=== PATIENT | male | born 1970 | race Caucasian/White ===

== ENCOUNTER 2018-04-25 10:13 | Inpatient (IN) | payer OTHER ==
[2018-04-25 10:28] VITALS: BMI 36.5
--- NOTE | 2018-04-25 13:26 | HP ---
CIWA Score Nausea/Vomitin Muscle Tremors: 2 Anxiety: 2 Agitation: 2 Paroxysmal Sweats: 1-Minimal Palms Moist Orientation: 0-Oriented Tacttile Disturbances: 1-Very Mild Itch/Numbness Auditory Disturbances: 1-Very Mild Visual Disturbances: 0-None Headache: 2-Mild CIWA-Ar Total Score: 13 - Admission Criteria OASAS Guidelines: Admission for Medically Managed Detox: Requires at least one of the followin. CIWA greater than 12 2. Seizures within the past 24 hours 3. Delirium tremens within the past 24 hours 4. Hallucinations within the past 24 hours 5. Acute intervention needed for co occurring medical disorder 6. Acute intervention needed for co occurring psychiatric disorder 7. Severe withdrawal that cannot be handled at a lower level of care (continued vomiting, continued diarrhea, abnormal vital signs) requiring intravenous medication and/or fluids 8. Patient presents the following: CIWA greater than 12 Admission Criteria Met: Admission criteria met Admission ROS BHS - HPI Chief Complaint: i need help to stop drinking alcohol and xanax on suboxone maintenance Allergies/Adverse Reactions: Allergies Allergy/AdvReac Type Severity Reaction Status Date / Time No Known Allergies Allergy Verified 04/25/18 12:03 History of Present Illness: this 47 years old male with alcohol and xanax dependence,seeking detox, withdrawal symptom,last detox 10/02/17 to 10/05/17 nicotine dependence multiple admissions longest sobriety 3 years on suboxone maintenance 8mg/2mg sl film tid Exam Limitations: No Limitations - Ebola screening Have you traveled outside of the country in the last 21 days: No Have you had contact with anyone from an Ebola affected area: No Have you been sick,other than usual withdrawal symptoms: No - Review of Systems Constitutional: Loss of Appetite, Malaise, Night Sweats, Changes in sleep, Weakness EENT: reports: Nose Congestion Respiratory: reports: No Symptoms reported Cardiac: reports: No Symptoms Reported GI: reports: Nausea, Vomiting, Abdominal cramping : reports: No Symptoms Reported Musculoskeletal: reports: Back Pain, Muscle Pain Integumentary: reports: Dryness Neuro: reports: Headache, Tremors Endocrine: reports: No Symptoms Reported Hematology: reports: No Symptoms Reported Psychiatric: reports: No Sypmtoms Reported, Judgement Intact, Mood/Affect Appropiate, Orientated x3 Patient History - Patient Medical History Hx Anemia: No Hx Asthma: No Hx Chronic Obstructive Pulmonary Disease (COPD): No Hx Cancer: No Hx Cardiac Disorders: No Hx Congestive Heart Failure: No Hx Hypertension: Yes (nomed) Hx Hypercholesterolemia: No Hx Pacemaker: No HX Cerebrovascular Accident: No Hx Seizures: No Hx Dementia: No Hx Diabetes: No Hx Gastrointestinal Disorders: No Hx Liver Disease: No Hx Genitourinary Disorders: No Hx Sexually Transmitted Disorders: No Hx Renal Disease (ESRD): No Hx Thyroid Disease: No Hx Human Immunodeficiency Virus (HIV): No (last 12/03 negative) Hx Hepatitis C: No Hx Depression: Yes (no med) Hx Suicide Attempt: No Hx Bipolar Disorder: No Hx Schizophrenia: No Other Medical History: no suicidal,no homicidal - Patient Surgical History Past Surgical History: No Hx Neurologic Surgery: No Hx Cataract Extraction: No Hx Cardiac Surgery: No Hx Lung Surgery: No Hx Breast Surgery: No Hx Breast Biopsy: No Hx Abdominal Surgery: No Hx Appendectomy: No Hx Cholecystectomy: No Hx Genitourinary Surgery: No Hx Section: No Hx Orthopedic Surgery: No Anesthesia Reaction: No - PPD History Previous Implant?: Yes Documented Results: Negative w/proof Implanted On Prior [facility] Admission?: Yes Date: 10/04/17 Results: 0 mm PPD to be Administered?: No - Smoking Cessation Smoking history: Current every day smoker Have you smoked in the past 12 months: Yes Aproximately how many cigarettes per day: 6 Hx Chewing Tobacco Use: No Initiated information on smoking cessation: Yes 'Breaking Loose' booklet given: 04/25/18 - Substance & Tx. History Hx Alcohol Use: Yes Hx Substance Use: Yes Substance Use Type: Alcohol, Tranquilizers Hx Substance Use Treatment: Yes ([facility] 10/02/18 to 10/05/17) - Substances Abused Alcohol-vodka Route: Oral Frequency: Daily Amount used: 1 pt. Age of first use: 15 Date of Last Use: 04/25/18 Klonopin Route: Oral Frequency: Daily Amount used: 4-6 mg. Age of first use: 37 Date of Last Use: 04/24/18 Family Disease History - Family Disease History Family Disease History: Diabetes: Father, Mother Admission Physical Exam BHS - Vital Signs Vital Signs: Vital Signs - 24 hr 04/25/18 10:22 Temperature 98.5 F Pulse Rate 98 H Respiratory 20 Rate Blood Pressure 137/79 - Physical General Appearance: Yes: Moderate Distress, Tremorous, Irritable, Sweating, Anxious HEENTM: Yes: Normal ENT Inspection, MELISSA, Pharynx Normal Respiratory: Yes: Lungs Clear, Normal Breath Sounds, No Respiratory Distress Neck: Yes: Within Normal Limits, Supple, Trachea in good position Breast: Yes: Within Normal Limits Cardiology: Yes: Within Normal Limits, Regular Rhythm, Regular Rate, S1, S2 Abdominal: Yes: Within Normal Limits, Normal Bowel Sounds, Non Tender, Soft Genitourinary: Yes: Within Normal Limits Back: Yes: Muscle Spasm Musculoskeletal: Yes: Back pain, Muscle Pain Extremities: Yes: Tremors Integumentary: Yes: Dry Lymphatic: Yes: Within Normal Limits - Diagnostic (1) Alcohol dependence with uncomplicated withdrawal Current Visit: No Status: Acute (2) Dehydration Current Visit: No Status: Acute (3) Nicotine dependence Current Visit: No Status: Acute Qualifiers: Nicotine product type: cigarettes Substance use status: uncomplicated Qualified Code(s): F17.210 - Nicotine dependence, cigarettes, uncomplicated (4) Sedative, hypnotic or anxiolytic dependence with withdrawal, uncomplicated Current Visit: No Status: Acute (5) Encounter for monitoring Suboxone maintenance therapy Current Visit: Yes Status: Acute Cleared for Admission [facility] - Detox or Rehab [facility] Level of Care: Medically Managed Detox Regimen/Protocol: Valium [facility] Breath Alcohol Content Breath Alcohol Content: 0.14 Urine Drug Screen - Results Drug Screen Negative: No Urine Drug Screen Results: THC-Marijuana, BUP-Suboxone
[2018-04-25] MEDS ORDERED: MAGNESIUM HYDROX 2400MG/30ML ORAL SUSPENSION 30 ML CUP PO PRN (13:37)
[2018-04-25] MEDS ORDERED: P-EPHED 60MG/TRIPROLIDI 2.5MG TABLET PO PRN (13:37)
[2018-04-25] MEDS ORDERED: MAGNESIUM CITRATE 300 ML BOTTLE PO PRN (13:37)
[2018-04-25] MEDS ORDERED: MENTHOL/PHENOL 1 EACH UD MM PRN (13:37)
[2018-04-25] MEDS ORDERED: IBUPROFEN 400 MG TABLET (FP) PO PRN (13:37)
[2018-04-25] MEDS ORDERED: ACETAMINOPHEN 325 MG TABLET (FP) PO PRN (13:37)
[2018-04-25] MEDS ORDERED: LOPERAMIDE HCL 2 MG CAPSULE PO PRN (13:37)
[2018-04-25] MEDS ORDERED: guaiFENesin/D-METHORPHAN HB 10 ML UNIT-DOSE CUPS PO PRN (13:37)
[2018-04-25] MEDS ORDERED: diazePAM 5 MG TABLET PO ONE (14:40)
[2018-04-25] MEDS: BUPRENORPHINE/NALOXONE 8 MG/2 MG FILM PACKET SL SCH ×2 (15:15→22:16)
[2018-04-25] MEDS: diazePAM 5 MG TABLET PO SCH ×2 (15:19→22:16)
[2018-04-25] MEDS: diazePAM 5 MG TABLET PO PRN (17:20)
[2018-04-25 18:32] LABS: URINE APPEARANCE SLCLOUDY; URINE BILIRUBIN NEGATIVE (<2.0 mg/dL); URINE COLOR YELLOW; URINE GLUCOSE (UA) NEGATIVE (NEGATIVE); URINE KETONE NEGATIVE (NEGATIVE); URINE LEUK ESTERASE NEGATIVE (NEGATIVE); URINE NITRITE NEGATIVE (NEGATIVE); URINE PROTEIN NEGATIVE (NEGATIVE); URINE UROBILINOGEN NEGATIVE mg/dL (0.2-1.0)
[2018-04-25] MEDS: NICOTINE POLACRILEX 2 MG GUM BUC PRN ×2 (19:15→22:17)
[2018-04-25] MEDS: THIAMINE HCL 100 MG TABLET (FP) PO SCH (22:16)
[2018-04-26] MEDS: diazePAM 5 MG TABLET PO PRN ×4 (04:22→20:25)
[2018-04-26] MEDS: NICOTINE POLACRILEX 2 MG GUM BUC PRN ×2 (06:07→22:49)
[2018-04-26] MEDS: diazePAM 5 MG TABLET PO SCH ×3 (06:07→22:08)
[2018-04-26] MEDS: BUPRENORPHINE/NALOXONE 8 MG/2 MG FILM PACKET SL SCH ×3 (06:07→22:08)
[2018-04-26 10:15] LABS: HEMATOCRIT 39.8 % (35.4-49); HEMOGLOBIN 13.3 GM/dL (11.7-16.9); MCH 28.4 pg (25.7-33.7); MCHC 33.3 g/dl (32.0-35.9); MEAN CELL VOLUME 85.5 fl (80-96); MEAN PLT VOLUME 10.5 fl (7.5-11.1); PLATELET COUNT 151 K/MM3 (134-434); RBC 4.66 M/mm3 (4.00-5.60); RDW 13.4 % (11.9-15.9); WHITE BLOOD COUNT 8.5 K/mm3 (4.0-10.0)
[2018-04-26] MEDS: PRENATAL VITAMINS W/ FOLIC ACID TABLET (FP) PO SCH (10:32)
[2018-04-26 10:46] LABS: ALBUMIN 3.5 g/dl (3.4-5.0); ALK PHOS 147 U/L (45-117); ANION GAP 9 MMOL/L (8-16); BILIRUBIN,TOTAL 0.4 mg/dL (0.2-1); BLOOD UREA NITROGEN 21 mg/dL (7-18); CALCIUM 8.6 mg/dL (8.5-10.1); CHLORIDE 103 mmol/L (98-107); CO2 27 mmol/L (21-32); GLUCOSE,RANDOM 97 mg/dL (74-106); POTASSIUM 4.1 mmol/L (3.5-5.1); SGOT/AST 58 U/L (15-37); SGPT/ALT 110 U/L (13-61); SODIUM 139 mmol/L (136-145); TOT PROT 7.4 g/dl (6.4-8.2)
[2018-04-26] MEDS: NICOTINE 14 MG/24 HOURS TOPICAL PATCH TD SCH (12:17)
--- NOTE | 2018-04-26 14:52 | EKG ---
Test Reason : Blood Pressure : / mmHG Vent. Rate : 090 BPM Atrial Rate : 090 BPM P-R Int : 154 ms QRS Dur : 086 ms QT Int : 372 ms P-R-T Axes : 054 048 017 degrees QTc Int : 455 ms NORMAL SINUS RHYTHM POSSIBLE LEFT ATRIAL ENLARGEMENT WHEN COMPARED WITH ECG OF 02-OCT-2017 14:57, NO SIGNIFICANT CHANGE WAS FOUND Confirmed by NNAMDI SARABIA MD ([id number]) on 04/26/2018 2:52:23 PM Referred By: Confirmed By:NNAMDI SARABIA MD
--- NOTE | 2018-04-26 17:35 | PN ---
S CIWA - CIWA Score Nausea/Vomitin Muscle Tremors: 4-Moderate,w/Arms Extend Anxiety: 3 Agitation: 4-Moderately Restless Paroxysmal Sweats: 3 Orientation: 0-Oriented Tacttile Disturbances: 0-None Auditory Disturbances: 0-None Visual Disturbances: 0-None Headache: 0-None Present CIWA-Ar Total Score: 16 BHS Progress Note (SOAP) Subjective: Interrupted sleep, anxious, sweating Objective: 04/26/18 17:34 Last Vital Signs Temp Pulse Resp BP Pulse Ox 97.0 F L 86 18 110/68 04/26/18 15:51 04/26/18 15:51 04/26/18 15:51 04/26/18 15:51 Laboratory Tests 04/25/18 04/26/18 04/26/18 15:48 06:00 06:00 WBC 8.5 RBC 4.66 Hgb 13.3 Hct 39.8 MCV 85.5 MCH 28.4 MCHC 33.3 RDW 13.4 Plt Count 151 MPV 10.5 Sodium 139 Potassium 4.1 Chloride 103 Carbon Dioxide 27 Anion Gap 9 BUN 21 H Creatinine 1.0 Creat Clearance w eGFR > 60 Random Glucose 97 Calcium 8.6 Total Bilirubin 0.4 AST 58 H ALT 110 H Alkaline Phosphatase 147 H Total Protein 7.4 Albumin 3.5 Urine Color Yellow Urine Appearance Slcloudy Urine pH 5.0 Ur Specific [place] 1.028 Urine Protein Negative Urine Glucose (UA) Negative Urine Ketones Negative Urine Blood Negative Urine Nitrite Negative Urine Bilirubin Negative Urine Urobilinogen Negative Ur Leukocyte Esterase Negative RPR Titer 04/26/18 06:00 WBC RBC Hgb Hct MCV MCH MCHC RDW Plt Count MPV Sodium Potassium Chloride Carbon Dioxide Anion Gap BUN Creatinine Creat Clearance w eGFR Random Glucose Calcium Total Bilirubin AST ALT Alkaline Phosphatase Total Protein Albumin Urine Color Urine Appearance Urine pH Ur Specific [place] Urine Protein Urine Glucose (UA) Urine Ketones Urine Blood Urine Nitrite Urine Bilirubin Urine Urobilinogen Ur Leukocyte Esterase RPR Titer Nonreactive Labs reviewed: bun 21 Assessment: 04/26/18 17:35 Withdrawal sxs Noted with azotemia Plan: Continue detox Azotemia: encouraged PO water intake
[2018-04-26] MEDS: THIAMINE HCL 100 MG TABLET (FP) PO SCH (22:08)
[2018-04-26] MEDS: MELATONIN 5 MG TABLETS PO PRN (22:09)
[2018-04-27] MEDS: diazePAM 5 MG TABLET PO PRN ×3 (01:54→14:09)
[2018-04-27] MEDS: BUPRENORPHINE/NALOXONE 8 MG/2 MG FILM PACKET SL SCH ×3 (05:55→22:06)
[2018-04-27] MEDS: NICOTINE POLACRILEX 2 MG GUM BUC PRN ×3 (05:56→22:07)
[2018-04-27] MEDS: diazePAM 5 MG TABLET PO SCH ×2 (10:26→22:07)
[2018-04-27] MEDS: PRENATAL VITAMINS W/ FOLIC ACID TABLET (FP) PO SCH (10:26)
[2018-04-27] MEDS: NICOTINE 14 MG/24 HOURS TOPICAL PATCH TD SCH (10:26)
--- NOTE | 2018-04-27 12:52 | PN ---
S CIWA - CIWA Score Nausea/Vomitin-No Nausea/No Vomiting Muscle Tremors: 3 Anxiety: 4-Mod. Anxious/Guarded Agitation: 4-Moderately Restless Paroxysmal Sweats: 1-Minimal Palms Moist Orientation: 0-Oriented Tacttile Disturbances: 0-None Auditory Disturbances: 0-None Visual Disturbances: 0-None Headache: 2-Mild CIWA-Ar Total Score: 14 BHS Progress Note (SOAP) Subjective: PT C/O HEADACHE, FATIGUE, RESTLESSNESS, INTERMITTENT SLEEP. Objective: 04/27/18 12:51 Vital Signs 04/27/18 04/27/18 06:22 11:05 Temperature 97 F L 97.3 F L Pulse Rate 79 91 H Respiratory 18 18 Rate Blood Pressure 103/66 126/85 Laboratory Tests 04/25/18 04/26/18 04/26/18 15:48 06:00 06:00 WBC 8.5 RBC 4.66 Hgb 13.3 Hct 39.8 MCV 85.5 MCH 28.4 MCHC 33.3 RDW 13.4 Plt Count 151 MPV 10.5 Sodium 139 Potassium 4.1 Chloride 103 Carbon Dioxide 27 Anion Gap 9 BUN 21 H Creatinine 1.0 Creat Clearance w eGFR > 60 Random Glucose 97 Calcium 8.6 Total Bilirubin 0.4 AST 58 H ALT 110 H Alkaline Phosphatase 147 H Total Protein 7.4 Albumin 3.5 Urine Color Yellow Urine Appearance Slcloudy Urine pH 5.0 Ur Specific [place] 1.028 Urine Protein Negative Urine Glucose (UA) Negative Urine Ketones Negative Urine Blood Negative Urine Nitrite Negative Urine Bilirubin Negative Urine Urobilinogen Negative Ur Leukocyte Esterase Negative RPR Titer 04/26/18 06:00 WBC RBC Hgb Hct MCV MCH MCHC RDW Plt Count MPV Sodium Potassium Chloride Carbon Dioxide Anion Gap BUN Creatinine Creat Clearance w eGFR Random Glucose Calcium Total Bilirubin AST ALT Alkaline Phosphatase Total Protein Albumin Urine Color Urine Appearance Urine pH Ur Specific [place] Urine Protein Urine Glucose (UA) Urine Ketones Urine Blood Urine Nitrite Urine Bilirubin Urine Urobilinogen Ur Leukocyte Esterase RPR Titer Nonreactive Assessment: 04/27/18 12:51 WITHDRAWAL SX Plan: CONTINUE DETOX TYLENOL PRN FOR H/A INCREASE PO FLUIDS ENCOURAGED.
[2018-04-27] MEDS: THIAMINE HCL 100 MG TABLET (FP) PO SCH (22:06)
[2018-04-27] MEDS: MELATONIN 5 MG TABLETS PO PRN (22:08)
[2018-04-28] MEDS: MAG HYDROX/AL HYDROX/SIMETH 30 ML UNIT-DOSE CUP PO PRN (04:12)
[2018-04-28] MEDS: diazePAM 5 MG TABLET PO PRN (04:12)
[2018-04-28] MEDS: BUPRENORPHINE/NALOXONE 8 MG/2 MG FILM PACKET SL SCH ×3 (06:03→22:06)
[2018-04-28] MEDS: NICOTINE POLACRILEX 2 MG GUM BUC PRN ×5 (06:05→22:06)
[2018-04-28] MEDS: NICOTINE 14 MG/24 HOURS TOPICAL PATCH TD SCH (10:37)
[2018-04-28] MEDS: PRENATAL VITAMINS W/ FOLIC ACID TABLET (FP) PO SCH (10:37)
[2018-04-28] MEDS: diazePAM 5 MG TABLET PO SCH ×2 (10:39→22:06)
[2018-04-28 11:02] LABS: SGOT/AST 30 U/L (15-37); SGPT/ALT 63 U/L (13-61)
[2018-04-28 11:44] LABS: INR 0.91 (0.83-1.09); PROTHROMBIN TIME (PATIENT) 10.7 SEC (9.7-13.0)
[2018-04-28] MEDS: hydrOXYzine PAMOATE 25 MG CAPSULE (FP) PO PRN ×2 (14:27→19:04)
--- NOTE | 2018-04-28 17:42 | PN ---
BHS Progress Note (SOAP) Subjective: Feeling tired, diarrhea Objective: 04/28/18 17:40 Last Vital Signs Temp Pulse Resp BP Pulse Ox 97.0 F L 94 H 20 108/78 04/28/18 15:05 04/28/18 15:05 04/28/18 15:05 04/28/18 15:05 Laboratory Tests 04/25/18 04/26/18 04/26/18 15:48 06:00 06:00 WBC 8.5 RBC 4.66 Hgb 13.3 Hct 39.8 MCV 85.5 MCH 28.4 MCHC 33.3 RDW 13.4 Plt Count 151 MPV 10.5 PT with INR INR Sodium 139 Potassium 4.1 Chloride 103 Carbon Dioxide 27 Anion Gap 9 BUN 21 H Creatinine 1.0 Creat Clearance w eGFR > 60 Random Glucose 97 Calcium 8.6 Total Bilirubin 0.4 AST 58 H ALT 110 H Alkaline Phosphatase 147 H Total Protein 7.4 Albumin 3.5 Urine Color Yellow Urine Appearance Slcloudy Urine pH 5.0 Ur Specific [place] 1.028 Urine Protein Negative Urine Glucose (UA) Negative Urine Ketones Negative Urine Blood Negative Urine Nitrite Negative Urine Bilirubin Negative Urine Urobilinogen Negative Ur Leukocyte Esterase Negative RPR Titer 04/26/18 04/28/18 04/28/18 06:00 07:30 07:30 WBC RBC Hgb Hct MCV MCH MCHC RDW Plt Count MPV PT with INR INR Sodium Potassium Chloride Carbon Dioxide Anion Gap BUN Creatinine Creat Clearance w eGFR Random Glucose Calcium Total Bilirubin AST Cancelled 30 ALT 63 H Alkaline Phosphatase Total Protein Albumin Urine Color Urine Appearance Urine pH Ur Specific [place] Urine Protein Urine Glucose (UA) Urine Ketones Urine Blood Urine Nitrite Urine Bilirubin Urine Urobilinogen Ur Leukocyte Esterase RPR Titer Nonreactive 04/28/18 04/28/18 07:30 07:30 WBC RBC Hgb Hct MCV MCH MCHC RDW Plt Count MPV PT with INR 10.70 INR 0.91 Sodium Potassium Chloride Carbon Dioxide Anion Gap BUN Creatinine Creat Clearance w eGFR Random Glucose Calcium Total Bilirubin AST ALT Alkaline Phosphatase 123 H Total Protein Albumin Urine Color Urine Appearance Urine pH Ur Specific [place] Urine Protein Urine Glucose (UA) Urine Ketones Urine Blood Urine Nitrite Urine Bilirubin Urine Urobilinogen Ur Leukocyte Esterase RPR Titer Labs reviewed Assessment: 04/28/18 17:40 Withdrawal sxs Plan: Continue detox Encouraged PO water intake
[2018-04-28] MEDS: THIAMINE HCL 100 MG TABLET (FP) PO SCH (22:06)
[2018-04-28] MEDS: MELATONIN 5 MG TABLETS PO PRN (22:06)
[2018-04-29] MEDS: MAG HYDROX/AL HYDROX/SIMETH 30 ML UNIT-DOSE CUP PO PRN (00:38)
[2018-04-29 06:31] VITALS: BP 104/70; PULSE 74; TEMP 96.9
[2018-04-29] MEDS: BUPRENORPHINE/NALOXONE 8 MG/2 MG FILM PACKET SL SCH (08:44)
--- NOTE | 2018-04-29 09:31 | DS ---
[facility] Detox Discharge Summary Admission Date: 04/25/18 Discharge Date: 04/29/18 - History Additional Comments: Pt had left unit prior to provider arriving unit. Per reports received, pt had stated he had to leave early because he had a long trip and had to catch the trains. Unable to verify if pt neeeds a Suboxone refill. Pertinent Past History: MMTP - Physical Exam Results Vital Signs: Vital Signs Temperature 96.9 F L 04/29/18 06:31 Pulse Rate 74 04/29/18 06:31 Respiratory Rate 18 04/29/18 06:31 Blood Pressure 104/70 04/29/18 06:31 O2 Sat by Pulse Oximetry (%) Pertinent Admission Physical Exam Findings: withdrawal sx - Treatment Hospital Course: Detox Protocol Followed, Detoxed Safely, Responded well, Discharged Condition Good - Medication Discharge Medications: Ambulatory Orders Buprenorphine/Naloxone [Suboxone 8Mg/2Mg Sl Film -] 2 each SL DAILY 04/25/18 - Diagnosis (1) Alcohol dependence with uncomplicated withdrawal Current Visit: Yes Status: Acute (2) Azotemia Current Visit: Yes Status: Acute (3) Elevated alkaline phosphatase level Current Visit: Yes Status: Acute (4) Elevated liver enzymes Current Visit: Yes Status: Acute (5) Nicotine dependence Current Visit: Yes Status: Acute Qualifiers: Nicotine product type: cigarettes Substance use status: in withdrawal Qualified Code(s): F17.213 - Nicotine dependence, cigarettes, with withdrawal (6) Sedative, hypnotic or anxiolytic dependence with withdrawal, uncomplicated Current Visit: Yes Status: Acute (7) Encounter for monitoring Suboxone maintenance therapy Current Visit: Yes Status: Chronic (8) Anxiety Current Visit: No Status: Acute (9) Cannabis abuse Current Visit: No Status: Acute (10) Cocaine dependence Current Visit: No Status: Acute (11) Dehydration Current Visit: No Status: Acute (12) Substance induced mood disorder Current Visit: No Status: Acute - AMA Did Patient Leave Against Medical Advice: No
[2018-04-29] MEDS ORDERED: diazePAM 5 MG TABLET PO SCH (10:00)
== END 2018-04-29 09:25 | disposition home or self-care (01) | DRG 774 ==
LOC: YASAS 10:13 → Y3N 14:02
PROC: HZ2ZZZZ Detoxification Services for Substance Abuse Treatment (ICD-10-PCS; principal; 2018-04-25)
DX: F10.230 Alcohol dependence with withdrawal, uncomplicated (principal); F13.230 Sedative, hypnotic or anxiolytic dependence with withdrawal, uncomplicated; F14.20 Cocaine dependence, uncomplicated; F12.10 Cannabis abuse, uncomplicated; F17.213 Nicotine dependence, cigarettes, with withdrawal; F41.9 Anxiety disorder, unspecified; F32.9 Major depressive disorder, single episode, unspecified; F19.24 Other psychoactive substance dependence with psychoactive substance-induced mood disorder; E86.0 Dehydration; R79.89 Other specified abnormal findings of blood chemistry; R74.8 Abnormal levels of other serum enzymes; R94.5 Abnormal results of liver function studies; Z51.81 Encounter for therapeutic drug level monitoring; Z59.0 Homelessness
CPT/HCPCS: 36415; 80053; 81003; 84075; 84450; 84460; 85027; 85610; 86593; 93005; 93010

== ENCOUNTER 2018-04-30 13:11 | Inpatient (IN) | payer OTHER ==
[2018-04-30 14:17] VITALS: BMI 36.9
--- NOTE | 2018-04-30 16:00 | HP ---
[facility] Rehab Assess/Revision - Admission History Admitted to Rehab from: [facility] Date of Admission to Rehab: 04/30/18 - Vital signs Vital Signs: Vital Signs Period Temp Pulse Resp BP Sys/Arnold Pulse Ox Last 24 Hr 100.0 F 113 20 141/93 - Findings Detox History & Physical reviewed: Yes Concur with findings: Yes Comments/Additional Findings: 47 years old male with alcohol and konopin dependence,suboxone maintenance,complete detox 04/25/18 to 04/29/18. for rehab as protocol Inpatient Rehab Admission - Initial Determination Are CD services needed?: Yes Free of communicable disease: Yes Not in need of hospitalization: Yes - Rehab Admission Criteria Previous failed treatment: Yes Poor recovery environment: Yes Comorbidities: Yes Lacks judgement: No Patient is meeting Inpatient Rehab admission criteria:: Yes
[2018-04-30] MEDS ORDERED: IBUPROFEN 400 MG TABLET (FP) PO PRN (16:02)
[2018-04-30] MEDS ORDERED: MAGNESIUM CITRATE 300 ML BOTTLE PO PRN (16:02)
[2018-04-30] MEDS ORDERED: LOPERAMIDE HCL 2 MG CAPSULE PO PRN (16:02)
[2018-04-30] MEDS ORDERED: P-EPHED 60MG/TRIPROLIDI 2.5MG TABLET PO PRN (16:02)
[2018-04-30] MEDS ORDERED: ACETAMINOPHEN 325 MG TABLET (FP) PO PRN (16:02)
[2018-04-30] MEDS ORDERED: MENTHOL/PHENOL 1 EACH UD MM PRN (16:02)
[2018-04-30] MEDS ORDERED: guaiFENesin/D-METHORPHAN HB 10 ML UNIT-DOSE CUPS PO PRN (16:02)
[2018-04-30] MEDS ORDERED: MAGNESIUM HYDROX 2400MG/30ML ORAL SUSPENSION 30 ML CUP PO PRN (16:02)
[2018-04-30] MEDS: NICOTINE POLACRILEX 2 MG GUM BUC PRN ×2 (19:26→22:46)
[2018-04-30] MEDS: GABAPENTIN 300 MG CAPSULE (FP) PO SCH (21:48)
[2018-04-30] MEDS: THIAMINE HCL 100 MG TABLET (FP) PO SCH (21:48)
[2018-04-30] MEDS: hydrOXYzine PAMOATE 50 MG CAPSULE (FP) PO PRN (22:45)
[2018-05-01] MEDS: GABAPENTIN 300 MG CAPSULE (FP) PO SCH ×2 (10:03→21:29)
[2018-05-01] MEDS: PRENATAL VITAMINS W/ FOLIC ACID TABLET (FP) PO SCH (10:04)
[2018-05-01] MEDS: BUPRENORPHINE/NALOXONE 8 MG/2 MG FILM PACKET SL SCH (10:04)
[2018-05-01] MEDS: NICOTINE POLACRILEX 2 MG GUM BUC PRN ×4 (10:09→21:30)
--- NOTE | 2018-05-01 10:31 | HP ---
Psychiatrist Admission - Data Date of interview: 05/01/18 Admission source: 3N Identifying data: This is the first [facility] admission for this 47 years old single male, father of a 20 years old daughter, unemployed deprived on any source of income, homeless Medical History: Significant for dyslipidemia. Patient is on Suboxone one each daily. Smokes 6 cigarettes daily Psychiatric History: Patient reports that he was diagnosed diagnosed with MDD approximately 20 years ago while in detention. He told marine underwriter that at the time, he was depressed with lack of sleep, motivation and interest in doing anything. He said that he was tried on several medications including Prozac and Paxil and finally Wellbutrin that he is still taking to this day. Reports history of 2 previous admissions to [facility] for 10 days in 2001 and [facility] x 15 days in 2006. Both admissions occured in the setting of intoxication with Phencyclidine and Benzodiazepine. He currently sees an DANCING TEACHER at [facility] and he is prescribed wellburtin Xl 150 mg po daily and Remeron 15 mg po Hs in addition to Suboxone and Gabapentin.Patient denies history of suicide attempts. At present, reports feeling anxious and sleeping poorly. Physical/Sexual Abuse/Trauma History: Denies Additional Comment: Reports history of multiple arrests including 3 felony convictions. denies being on parole/probation at present Vital Signs: Vital Signs - 24 hr 04/30/18 04/30/18 05/01/18 14:12 18:50 00:30 Temperature 100.0 F H 98.9 F Pulse Rate 113 H 100 H Respiratory 20 18 20 Rate Blood Pressure 141/93 120/65 05/01/18 05/01/18 03:30 06:49 Temperature 97.8 F Pulse Rate 79 Respiratory 18 18 Rate Blood Pressure 117/78 Allergies/Adverse Reactions: Allergies Allergy/AdvReac Type Severity Reaction Status Date / Time No Known Allergies Allergy Verified 04/30/18 14:26 Date of last physical exam: 04/25/18 Concur with the findings of this exam: Yes - Substance Abuse/Tx History Hx Alcohol Use: Yes Hx Substance Use: Yes (Currently attending [facility]) Substance Use Type: Alcohol (Started drinking alcohol at age 15, consumes one pint of vodka daily. Last drank on 04/25/18), Tranquilizers (Started using klonopin at age 37, consumes 4-6 mg/day. Last used on 04/24/18) Hx Substance Use Treatment: Yes (Multiple inpt deox & inpt rehab admissions) Mental Status Exam - Mental Status Exam Alert and Oriented to: Time, Place Cognitive Function: Fair Patient Appearance: Well Groomed Mood: Anxious Affect: Appropriate Patient Behavior: Cooperative Speech Pattern: Clear Voice Loudness: Normal Thought Process: Intact Thought Disorder: Not Present Hallucinations: Denies Suicidal Ideation: Denies Homicidal Ideation: Denies Insight/Judgement: Fair Sleep: Poorly Appetite: Good Muscle strength/Tone: Normal Gait/Station: Normal Psychiatric Findings - Problem List ([place] 1, 2,3) (1) Alcohol dependence Current Visit: Yes Status: Acute (2) Sedative hypnotic or anxiolytic dependence Current Visit: Yes Status: Acute (3) Opioid dependence on agonist therapy Current Visit: No Status: Chronic (4) Nicotine dependence Current Visit: No Status: Chronic Qualifiers: (5) MDD (major depressive disorder), recurrent episode, moderate Current Visit: Yes Status: Chronic (6) Substance-induced anxiety disorder Current Visit: Yes Status: Acute (7) Substance-induced sleep disorder Current Visit: Yes Status: Acute (8) HLD (hyperlipidemia) Current Visit: Yes Status: Chronic - Initial Treatment Plan Initial Treatment Plan: 1) Continue Wellbutrin XL 150 mg po daily and Remeron 15 mg po HS ordered by Dr Bradley. 2) Monitor progress
[2018-05-01] MEDS: hydrOXYzine PAMOATE 50 MG CAPSULE (FP) PO PRN (17:35)
[2018-05-01] MEDS: MIRTAZAPINE 15 MG TABLET (FP) PO SCH (21:29)
[2018-05-01] MEDS: THIAMINE HCL 100 MG TABLET (FP) PO SCH (21:29)
[2018-05-02] MEDS: hydrOXYzine PAMOATE 50 MG CAPSULE (FP) PO PRN ×2 (06:51→17:22)
[2018-05-02] MEDS: BUPRENORPHINE/NALOXONE 8 MG/2 MG FILM PACKET SL SCH (10:44)
[2018-05-02] MEDS: GABAPENTIN 300 MG CAPSULE (FP) PO SCH ×2 (10:44→21:27)
[2018-05-02] MEDS: PRENATAL VITAMINS W/ FOLIC ACID TABLET (FP) PO SCH (10:44)
[2018-05-02] MEDS: NICOTINE POLACRILEX 2 MG GUM BUC PRN ×4 (10:45→21:30)
[2018-05-02] MEDS: THIAMINE HCL 100 MG TABLET (FP) PO SCH (21:27)
[2018-05-02] MEDS: MIRTAZAPINE 15 MG TABLET (FP) PO SCH (21:27)
[2018-05-02] MEDS: HYDROCORTISONE 1% TOPICAL CREAM 30 GM TUBE TP SCH (21:29)
[2018-05-03] MEDS: BUPRENORPHINE/NALOXONE 8 MG/2 MG FILM PACKET SL SCH ×2 (06:33→10:16)
[2018-05-03] MEDS: NICOTINE POLACRILEX 2 MG GUM BUC PRN ×5 (06:33→20:45)
[2018-05-03] MEDS: GABAPENTIN 300 MG CAPSULE (FP) PO SCH ×2 (10:16→21:28)
[2018-05-03] MEDS: PRENATAL VITAMINS W/ FOLIC ACID TABLET (FP) PO SCH (10:16)
[2018-05-03] MEDS: HYDROCORTISONE 1% TOPICAL CREAM 30 GM TUBE TP SCH ×2 (10:55→21:32)
[2018-05-03] MEDS: hydrOXYzine PAMOATE 50 MG CAPSULE (FP) PO PRN ×2 (12:29→21:28)
[2018-05-03] MEDS: MIRTAZAPINE 15 MG TABLET (FP) PO SCH (21:28)
[2018-05-03] MEDS: THIAMINE HCL 100 MG TABLET (FP) PO SCH (21:28)
[2018-05-04] MEDS: MAG HYDROX/AL HYDROX/SIMETH 30 ML UNIT-DOSE CUP PO PRN (06:02)
[2018-05-04] MEDS: NICOTINE POLACRILEX 2 MG GUM BUC PRN ×5 (06:22→21:25)
[2018-05-04] MEDS: BUPRENORPHINE/NALOXONE 8 MG/2 MG FILM PACKET SL SCH (07:31)
[2018-05-04] MEDS: GABAPENTIN 300 MG CAPSULE (FP) PO SCH ×2 (09:50→21:23)
[2018-05-04] MEDS: PRENATAL VITAMINS W/ FOLIC ACID TABLET (FP) PO SCH (09:50)
[2018-05-04] MEDS: hydrOXYzine PAMOATE 50 MG CAPSULE (FP) PO PRN ×3 (09:51→21:24)
[2018-05-04] MEDS: HYDROCORTISONE 1% TOPICAL CREAM 30 GM TUBE TP SCH ×2 (09:52→21:24)
[2018-05-04] MEDS: MIRTAZAPINE 15 MG TABLET (FP) PO SCH (21:23)
[2018-05-04] MEDS: MELATONIN 5 MG TABLETS PO PRN (21:24)
[2018-05-04] MEDS: THIAMINE HCL 100 MG TABLET (FP) PO SCH (21:24)
[2018-05-05] MEDS: BUPRENORPHINE/NALOXONE 8 MG/2 MG FILM PACKET SL SCH (06:22)
[2018-05-05] MEDS: NICOTINE POLACRILEX 2 MG GUM BUC PRN ×5 (06:23→21:30)
[2018-05-05] MEDS: hydrOXYzine PAMOATE 50 MG CAPSULE (FP) PO PRN ×3 (06:23→21:29)
[2018-05-05] MEDS: PRENATAL VITAMINS W/ FOLIC ACID TABLET (FP) PO SCH (09:25)
[2018-05-05] MEDS: HYDROCORTISONE 1% TOPICAL CREAM 30 GM TUBE TP SCH ×2 (09:25→21:30)
[2018-05-05] MEDS: GABAPENTIN 300 MG CAPSULE (FP) PO SCH ×2 (09:25→21:29)
[2018-05-05] MEDS: MIRTAZAPINE 15 MG TABLET (FP) PO SCH (21:29)
[2018-05-05] MEDS: MELATONIN 5 MG TABLETS PO PRN (21:29)
[2018-05-05] MEDS: THIAMINE HCL 100 MG TABLET (FP) PO SCH (21:30)
[2018-05-06] MEDS: BUPRENORPHINE/NALOXONE 8 MG/2 MG FILM PACKET SL SCH (06:11)
[2018-05-06] MEDS: NICOTINE POLACRILEX 2 MG GUM BUC PRN ×3 (06:12→16:56)
[2018-05-06] MEDS: GABAPENTIN 300 MG CAPSULE (FP) PO SCH ×2 (11:07→21:36)
[2018-05-06] MEDS: HYDROCORTISONE 1% TOPICAL CREAM 30 GM TUBE TP SCH ×2 (11:07→22:43)
[2018-05-06] MEDS: PRENATAL VITAMINS W/ FOLIC ACID TABLET (FP) PO SCH (11:07)
[2018-05-06] MEDS: hydrOXYzine PAMOATE 50 MG CAPSULE (FP) PO PRN ×2 (11:10→21:37)
[2018-05-06] MEDS: MELATONIN 5 MG TABLETS PO PRN (21:36)
[2018-05-06] MEDS: MIRTAZAPINE 15 MG TABLET (FP) PO SCH (21:36)
[2018-05-06] MEDS: THIAMINE HCL 100 MG TABLET (FP) PO SCH (21:37)
[2018-05-07] MEDS: BUPRENORPHINE/NALOXONE 8 MG/2 MG FILM PACKET SL SCH (06:05)
[2018-05-07] MEDS: PRENATAL VITAMINS W/ FOLIC ACID TABLET (FP) PO SCH (10:57)
[2018-05-07] MEDS: HYDROCORTISONE 1% TOPICAL CREAM 30 GM TUBE TP SCH ×2 (10:57→22:38)
[2018-05-07] MEDS: GABAPENTIN 300 MG CAPSULE (FP) PO SCH ×2 (10:57→21:38)
[2018-05-07] MEDS: hydrOXYzine PAMOATE 50 MG CAPSULE (FP) PO PRN ×3 (10:58→21:40)
[2018-05-07] MEDS: NICOTINE POLACRILEX 2 MG GUM BUC PRN ×3 (10:58→17:42)
[2018-05-07] MEDS: NICOTINE 14 MG/24 HOURS TOPICAL PATCH TD SCH (11:35)
[2018-05-07] MEDS: MIRTAZAPINE 15 MG TABLET (FP) PO SCH (21:39)
[2018-05-07] MEDS: THIAMINE HCL 100 MG TABLET (FP) PO SCH (21:39)
[2018-05-07] MEDS: MELATONIN 5 MG TABLETS PO PRN (21:39)
[2018-05-08] MEDS: BUPRENORPHINE/NALOXONE 8 MG/2 MG FILM PACKET SL SCH (06:19)
[2018-05-08] MEDS: NICOTINE POLACRILEX 2 MG GUM BUC PRN ×4 (06:20→16:06)
[2018-05-08] MEDS: GABAPENTIN 300 MG CAPSULE (FP) PO SCH ×2 (10:21→21:31)
[2018-05-08] MEDS: NICOTINE 14 MG/24 HOURS TOPICAL PATCH TD SCH (10:21)
[2018-05-08] MEDS: HYDROCORTISONE 1% TOPICAL CREAM 30 GM TUBE TP SCH ×2 (10:21→21:32)
[2018-05-08] MEDS: hydrOXYzine PAMOATE 50 MG CAPSULE (FP) PO PRN ×2 (10:21→21:31)
[2018-05-08] MEDS: PRENATAL VITAMINS W/ FOLIC ACID TABLET (FP) PO SCH (10:21)
[2018-05-08] MEDS: THIAMINE HCL 100 MG TABLET (FP) PO SCH (21:31)
[2018-05-08] MEDS: MIRTAZAPINE 15 MG TABLET (FP) PO SCH (21:31)
[2018-05-08] MEDS: MELATONIN 5 MG TABLETS PO PRN (21:32)
[2018-05-09] MEDS: BUPRENORPHINE/NALOXONE 8 MG/2 MG FILM PACKET SL SCH (06:37)
[2018-05-09] MEDS: NICOTINE POLACRILEX 2 MG GUM BUC PRN ×5 (06:39→21:41)
[2018-05-09] MEDS: NICOTINE 14 MG/24 HOURS TOPICAL PATCH TD SCH (10:06)
[2018-05-09] MEDS: GABAPENTIN 300 MG CAPSULE (FP) PO SCH ×2 (10:06→21:39)
[2018-05-09] MEDS: HYDROCORTISONE 1% TOPICAL CREAM 30 GM TUBE TP SCH ×2 (10:06→21:41)
[2018-05-09] MEDS: hydrOXYzine PAMOATE 50 MG CAPSULE (FP) PO PRN ×2 (10:07→21:39)
[2018-05-09] MEDS: PRENATAL VITAMINS W/ FOLIC ACID TABLET (FP) PO SCH (10:08)
[2018-05-09] MEDS: MAG HYDROX/AL HYDROX/SIMETH 30 ML UNIT-DOSE CUP PO PRN (17:22)
[2018-05-09] MEDS: MIRTAZAPINE 15 MG TABLET (FP) PO SCH (21:40)
[2018-05-09] MEDS: MELATONIN 5 MG TABLETS PO PRN (21:40)
[2018-05-09] MEDS: THIAMINE HCL 100 MG TABLET (FP) PO SCH (21:40)
[2018-05-10] MEDS: BUPRENORPHINE/NALOXONE 8 MG/2 MG FILM PACKET SL SCH (06:14)
[2018-05-10] MEDS: NICOTINE POLACRILEX 2 MG GUM BUC PRN ×5 (06:14→21:43)
[2018-05-10 07:13] VITALS: TEMP 97.8
[2018-05-10] MEDS: PRENATAL VITAMINS W/ FOLIC ACID TABLET (FP) PO SCH (10:04)
[2018-05-10] MEDS: GABAPENTIN 300 MG CAPSULE (FP) PO SCH ×2 (10:04→21:42)
[2018-05-10] MEDS: NICOTINE 14 MG/24 HOURS TOPICAL PATCH TD SCH (10:05)
[2018-05-10] MEDS: HYDROCORTISONE 1% TOPICAL CREAM 30 GM TUBE TP SCH ×2 (10:05→22:20)
[2018-05-10] MEDS: hydrOXYzine PAMOATE 50 MG CAPSULE (FP) PO PRN ×2 (10:06→21:42)
--- NOTE | 2018-05-10 10:18 | PN ---
S Progress Note (SOAP) Subjective: Patient states having diarrhea since decreaseing Suboxone and notes B/P is elevated. Requesting CloNidine prn to off-set some of the symptoms. States will be continuing Suboxone taper. Objective: Alert and oriented. Pupils 3 mm. Lungs CTA. HR: RR Vital Signs - 24 hr 05/10/18 05/10/18 05/10/18 00:30 03:30 07:12 Temperature 97.8 F Pulse Rate 86 Respiratory 20 18 18 Rate Blood Pressure 147/90 Assessment: Early Remssion Opiate withdrawal symptoms Plan: CloNidine 0.1 mg PO Q8H prn. Encouraged increased water intake.
[2018-05-10] MEDS: cloNIDine HCL 0.1 MG TABLET PO PRN ×2 (11:06→19:07)
[2018-05-10] MEDS: MIRTAZAPINE 15 MG TABLET (FP) PO SCH (21:42)
[2018-05-10] MEDS: THIAMINE HCL 100 MG TABLET (FP) PO SCH (21:42)
[2018-05-10] MEDS: MELATONIN 5 MG TABLETS PO PRN (21:42)
[2018-05-11] MEDS: BUPRENORPHINE/NALOXONE 8 MG/2 MG FILM PACKET SL SCH (06:17)
[2018-05-11] MEDS: NICOTINE POLACRILEX 2 MG GUM BUC PRN ×4 (08:03→21:35)
[2018-05-11] MEDS: PRENATAL VITAMINS W/ FOLIC ACID TABLET (FP) PO SCH (10:24)
[2018-05-11] MEDS: GABAPENTIN 300 MG CAPSULE (FP) PO SCH ×2 (10:24→21:34)
[2018-05-11] MEDS: cloNIDine HCL 0.1 MG TABLET PO PRN ×2 (10:25→18:35)
[2018-05-11] MEDS: hydrOXYzine PAMOATE 50 MG CAPSULE (FP) PO PRN ×2 (10:25→18:34)
[2018-05-11] MEDS: HYDROCORTISONE 1% TOPICAL CREAM 30 GM TUBE TP SCH ×2 (10:25→22:13)
[2018-05-11] MEDS: NICOTINE 14 MG/24 HOURS TOPICAL PATCH TD SCH (10:25)
[2018-05-11] MEDS: MELATONIN 5 MG TABLETS PO PRN (21:34)
[2018-05-11] MEDS: MIRTAZAPINE 15 MG TABLET (FP) PO SCH (21:34)
[2018-05-11] MEDS: THIAMINE HCL 100 MG TABLET (FP) PO SCH (21:34)
[2018-05-12] MEDS: BUPRENORPHINE/NALOXONE 8 MG/2 MG FILM PACKET SL SCH (06:10)
[2018-05-12] MEDS: NICOTINE POLACRILEX 2 MG GUM BUC PRN ×5 (06:11→21:32)
[2018-05-12] MEDS: cloNIDine HCL 0.1 MG TABLET PO PRN ×2 (08:34→21:32)
[2018-05-12] MEDS: hydrOXYzine PAMOATE 50 MG CAPSULE (FP) PO PRN ×2 (08:34→21:32)
[2018-05-12] MEDS: PRENATAL VITAMINS W/ FOLIC ACID TABLET (FP) PO SCH (09:58)
[2018-05-12] MEDS: HYDROCORTISONE 1% TOPICAL CREAM 30 GM TUBE TP SCH ×2 (09:58→21:33)
[2018-05-12] MEDS: GABAPENTIN 300 MG CAPSULE (FP) PO SCH ×2 (09:58→21:32)
[2018-05-12] MEDS: NICOTINE 14 MG/24 HOURS TOPICAL PATCH TD SCH (09:59)
[2018-05-12] MEDS: MIRTAZAPINE 15 MG TABLET (FP) PO SCH (21:32)
[2018-05-12] MEDS: MELATONIN 5 MG TABLETS PO PRN (21:32)
[2018-05-12] MEDS: THIAMINE HCL 100 MG TABLET (FP) PO SCH (21:32)
[2018-05-13] MEDS: BUPRENORPHINE/NALOXONE 8 MG/2 MG FILM PACKET SL SCH (06:12)
[2018-05-13 06:56] VITALS: BP 125/83; PULSE 82
--- NOTE | 2018-05-13 08:31 | PN ---
Psychiatric Progress Note Vital Signs: Vital Signs Period Temp Pulse Resp BP Sys/Arnold Pulse Ox Last 24 Hr 97.8 F 82-103 18-20 125-147/73-83 Date of Session: 05/13/18 Chief Complaint:: "Discharge" HPI: Patient was admitted to for alcohol abnd opioid dependence. ROS: Significant for dyslipidemia. Current Medications: Active Medications Generic Name Dose Route Start Last Admin Trade Name Freq PRN Reason Stop Dose Admin Acetaminophen 650 mg 04/30/18 16:02 Tylenol - PO Q4H PRN FEVER Al Hydroxide/Mg Hydroxide 30 ml 04/30/18 16:02 05/09/18 17:22 Mylanta Oral Suspension - PO 30 ml Q6H PRN Administration DYSPEPSIA Buprenorphine/Naloxone 1 each 05/09/18 06:00 05/13/18 06:12 Suboxone 8mg/2mg Sl Film - SL 05/15/18 05:59 1 each DAILY@0600 CHRISTIANA Administration Bupropion HCl 150 mg 05/01/18 10:00 05/12/18 09:58 Wellbutrin Xl - PO 150 mg DAILY CHRISTIANA Administration Clonidine 0.1 mg 05/10/18 10:23 05/12/18 21:32 Catapres - PO 0.1 mg Q8H PRN Administration WITHDRAWAL(CONT SUBST) Eucalyptus/Menthol/Phenol/Sorbitol 1 each 04/30/18 16:02 Cepastat Lozenge - MM Q4H PRN SORE THROAT Gabapentin 600 mg 04/30/18 22:00 05/12/18 21:32 Neurontin - PO 600 mg BID CHRISTIANA Administration Guaifenesin 10 ml 04/30/18 16:02 Robitussin Dm - PO Q6H PRN COUGH Hydrocortisone 1 applic 05/02/18 22:00 05/12/18 21:33 Hytone 1% Cream - TP Not Given BID CHRISTIANA Hydroxyzine Pamoate 50 mg 04/30/18 16:02 05/12/18 21:32 Vistaril - PO 50 mg Q4H PRN Administration AGITATION Ibuprofen 400 mg 04/30/18 16:02 05/06/18 16:55 Motrin - PO 400 mg Q6H PRN Administration Pain Level 4-6 Loperamide HCl 4 mg 04/30/18 16:02 Imodium - PO Q6H PRN DIARRHEA Magnesium Citrate 300 ml 04/30/18 16:02 Citroma - PO Q48H PRN CONSTIPATION Magnesium Hydroxide 30 ml 04/30/18 16:02 Milk Of Magnesia - PO DAILY PRN CONSTIPATION Melatonin 5 mg 04/30/18 22:00 05/12/18 21:32 Melatonin PO 5 mg HS PRN Administration INSOMNIA Mirtazapine 15 mg 05/01/18 22:00 05/12/18 21:32 Remeron - PO 15 mg HS CHRISTIANA Administration Nicotine 14 mg 05/07/18 11:15 05/12/18 09:59 Nicoderm Patch - TD 14 mg DAILY CHRISTIANA Administration Nicotine Polacrilex 2 mg 04/30/18 16:02 05/12/18 21:32 Nicorette Gum - BUC 2 mg Q2H PRN Administration NICOTINE REPLACEMENT RX Multivit/Folic Acid/Iron 1 tab 05/01/18 10:00 05/12/18 09:58 Vitamins (Sj[facility]) - PO 1 tab DAILY CHRISTIANA Administration Pseudoephedrine/Triprolidine 1 combo 04/30/18 16:02 Actifed - PO TID PRN NASAL CONGESTION Thiamine HCl 100 mg 04/30/18 22:00 05/12/18 21:32 Vitamin B1 - PO 100 mg HS CHRISTIANA Administration Medication(s) Change(s): No. Current Side Effect: No Lab tests ordered: No Lab tests reviewed: Yes Provider note:: Patient able to complete the rehabilitation program on . He has met his treatment goals and will continue to address his issues at [facility].Through participation of this program he has learned the importance of changing his behaviors and the need for more structure in his life. Patient reports feeling well and is motivated to remain abstinent from alcoholl. A 30 day prescription of Wellbutrin 150mg XL + Gabapentin 600mg TID + Mirtzapine 15mg was [place] [address]. Patient is stable for discharge on 05/13/18. Total face to face time:: 35 Mental Status Exam - Mental Status Exam Alert and Oriented to: Time, Place, Person Cognitive Function: Good Patient Appearance: Well Groomed Mood: Hopeful Affect: Appropriate Patient Behavior: Appropriate, Cooperative Speech Pattern: Clear, Appropriate Voice Loudness: Normal Thought Process: Intact, Goal Oriented Thought Disorder: Not Present Hallucinations: Denies Suicidal Ideation: Denies Homicidal Ideation: Denies Insight/Judgement: Good Sleep: Well Appetite: Good Muscle strength/Tone: Normal Gait/Station: Normal Psychiatric Treatment Plan - Problem List (1) Alcohol dependence Current Visit: Yes Qualifiers: Substance use status: in remission Qualified Code(s): F10.21 - Alcohol dependence, in remission (2) Sedative, hypnotic or anxiolytic dependence, uncomplicated Current Visit: Yes (3) Substance-induced anxiety disorder Current Visit: Yes (4) Substance-induced sleep disorder Current Visit: Yes (5) MDD (major depressive disorder), recurrent episode, moderate Current Visit: Yes (6) Opioid dependence on agonist therapy Current Visit: No (7) Nicotine dependence Current Visit: No Qualifiers:
== END 2018-05-13 08:45 | disposition home or self-care (01) | DRG 772 ==
LOC: YASAS 13:11 → Y5N 15:49
PROVIDERS: ADMIT Psychiatry & Neurology Psychiatry; ATTEND Psychiatry & Neurology Psychiatry
PROC: HZ42ZZZ Group Counseling for Substance Abuse Treatment, Cognitive-Behavioral (ICD-10-PCS; principal; 2018-04-30)
DX: F10.20 Alcohol dependence, uncomplicated (principal); F13.20 Sedative, hypnotic or anxiolytic dependence, uncomplicated; F11.20 Opioid dependence, uncomplicated; F17.210 Nicotine dependence, cigarettes, uncomplicated; F19.280 Other psychoactive substance dependence with psychoactive substance-induced anxiety disorder; F19.282 Other psychoactive substance dependence with psychoactive substance-induced sleep disorder; F33.1 Major depressive disorder, recurrent, moderate; E78.5 Hyperlipidemia, unspecified; Z51.81 Encounter for therapeutic drug level monitoring; Z59.0 Homelessness
CPT/HCPCS: J0735

== ENCOUNTER 2018-12-03 16:50 | Inpatient (IN) | payer OTHER ==
--- NOTE | 2018-12-04 02:18 | HP ---
CIWA Score Nausea/Vomitin-Mild Nausea/No Vomiting Muscle Tremors: 4-Moderate,w/Arms Extend Anxiety: 3 Agitation: 3 Paroxysmal Sweats: 2 Orientation: 2-Disoriented Date<2 days Tacttile Disturbances: 0-None Auditory Disturbances: 0-None Visual Disturbances: 0-None Headache: 3-Moderate CIWA-Ar Total Score: 18 - Admission Criteria OASAS Guidelines: Admission for Medically Managed Detox: Requires at least one of the followin. CIWA greater than 12 2. Seizures within the past 24 hours 3. Delirium tremens within the past 24 hours 4. Hallucinations within the past 24 hours 5. Acute intervention needed for co occurring medical disorder 6. Acute intervention needed for co occurring psychiatric disorder 7. Severe withdrawal that cannot be handled at a lower level of care (continued vomiting, continued diarrhea, abnormal vital signs) requiring intravenous medication and/or fluids 8. Admission ROS [facility] Chief Complaint: Xanax withdrawal symptoms Allergies/Adverse Reactions: Allergies Allergy/AdvReac Type Severity Reaction Status Date / Time No Known Allergies Allergy Verified 12/04/18 04:45 History of Present Illness: 48 years old male with a history of benzodiazepine depenndence is seeking admission to detox. Patient has been to various detox, last at [facility]. He has medical history of hypercholesterolemia, hypertension and depression. He denies suicidal ideation at this time. Patient report that he is on Methadone 90mg tablet oral daily with [facility]. Last day medicated was 12/03/2018. Dose is yet to confirmed by the nurse. Patient reports that he was on buprenorphine- nalaxone sl film which was changed to methadone 10 days ago by his physician. Exam Limitations: No Limitations - Ebola screening Have you traveled outside of the country in the last 21 days: No (N) Have you had contact with anyone from an Ebola affected area: No Do you have a fever: No - Review of Systems Constitutional: Chills, Loss of Appetite, Malaise, Changes in sleep, Weakness EENT: reports: Sinus Pressure Respiratory: reports: No Symptoms reported Cardiac: reports: No Symptoms Reported GI: reports: No Symptoms Reported : reports: No Symptoms Reported Musculoskeletal: reports: Back Pain, Muscle Pain Integumentary: reports: Dryness, Flushing Neuro: reports: Tremors Endocrine: reports: No Symptoms Reported Hematology: reports: No Symptoms Reported Psychiatric: reports: Mood/Affect Appropiate, Orientated x3, Anxious Other Systems: Reviewed and Negative Patient History - Patient Medical History Hx Anemia: No Hx Asthma: No Hx Chronic Obstructive Pulmonary Disease (COPD): No Hx Cancer: No Hx Cardiac Disorders: No Hx Congestive Heart Failure: No Hx Hypertension: Yes (Not on med) Hx Hypercholesterolemia: No Hx Pacemaker: No HX Cerebrovascular Accident: No Hx Seizures: No Hx Dementia: No Hx Diabetes: No Hx Gastrointestinal Disorders: No Hx Liver Disease: No Hx Genitourinary Disorders: No Hx Sexually Transmitted Disorders: No Hx Renal Disease (ESRD): No Hx Thyroid Disease: No Hx Human Immunodeficiency Virus (HIV): No (Negative 2017) Hx Hepatitis C: No Hx Depression: Yes (Not on med) Hx Suicide Attempt: No Hx Bipolar Disorder: No Hx Schizophrenia: No - Patient Surgical History Past Surgical History: No Hx Neurologic Surgery: No Hx Cataract Extraction: No Hx Cardiac Surgery: No Hx Lung Surgery: No Hx Abdominal Surgery: No Hx Appendectomy: No Hx Cholecystectomy: No Hx Genitourinary Surgery: No Hx Orthopedic Surgery: No Anesthesia Reaction: No - PPD History Previous Implant?: Yes Documented Results: Negative w/proof Implanted On Prior [facility] Admission?: Yes Date: 10/04/17 Results: 0 mm PPD to be Administered?: Yes - Reproductive History Patient is a Female of Child Bearing Age (11 -55 yrs old): No (male) - Smoking Cessation Smoking history: Current every day smoker Have you smoked in the past 12 months: Yes Aproximately how many cigarettes per day: 6 Hx Chewing Tobacco Use: No Initiated information on smoking cessation: Yes 'Breaking Loose' booklet given: 12/04/18 - Substance & Tx. History Hx Alcohol Use: No Hx Substance Use: Yes Substance Use Type: Alcohol, Opiates, Prescribed Hx Substance Use Treatment: Yes - Substances abused Alprazolam (Xanax) Substance route: Oral Frequency: Daily Amount used: 6mg Age of first use: 33 Date of last use: 12/03/18 Benzodiazepine (Klonopin) Frequency: Daily Amount used: 2mg Age of first use: 33 Date of last use: 12/03/18 Family Disease History - Family Disease History Family Disease History: Diabetes: Father, Mother Admission Physical Exam [facility] - Physical General Appearance: Yes: No Apparent Distress, Moderate Distress, Tremorous, Irritable, Anxious HEENTM: Yes: Within Normal Limits, Normocephalic, Normal Voice, MELISSA Respiratory: Yes: Normal Breath Sounds, No Respiratory Distress Neck: Yes: Supple Breast: Yes: Breast Exam Deferred, Within Normal Limits Cardiology: Yes: Regular Rhythm, Regular Rate Abdominal: Yes: Normal Bowel Sounds Genitourinary: Yes: Within Normal Limits Back: Yes: Normal Inspection Musculoskeletal: Yes: full range of Motion Extremities: Yes: Tremors Neurological: Yes: Normal Mood/Affect Integumentary: Yes: Warm Lymphatic: Yes: Within Normal Limits - Diagnostic (1) Alcohol dependence with uncomplicated withdrawal Current Visit: Yes Status: Chronic (2) Anxiety Current Visit: Yes Status: Chronic (3) Cocaine dependence Current Visit: Yes Status: Chronic Qualifiers: Substance use status: uncomplicated Qualified Code(s): F14.20 - Cocaine dependence, uncomplicated (4) Depression Current Visit: Yes Status: Chronic Qualifiers: Depression Type: unspecified Qualified Code(s): F32.9 - Major depressive disorder, single episode, unspecified (5) HLD (hyperlipidemia) Current Visit: Yes Status: Chronic Qualifiers: Hyperlipidemia type: unspecified Qualified Code(s): E78.5 - Hyperlipidemia , unspecified (6) Nicotine dependence Current Visit: Yes Status: Chronic Qualifiers: (7) Opioid dependence on agonist therapy Current Visit: Yes Status: Chronic (8) Sedative hypnotic or anxiolytic dependence Current Visit: Yes Status: Chronic Cleared for Admission S - Detox or Rehab [facility] Level of Care: Medically Managed Detox Regimen/Protocol: Valium Breathalyzer - Breathalyzer Breathalyzer: 0 Vital Signs - Vital Signs Vital signs refused: No Temperature: 97 F Temperature source: Oral Pulse Rate: 71 Respiratory Rate: 18 Blood Pressure: 131/91 - Height Height: 5 ft 7 in - Weight Weight: 213 lb - BMI Body Mass Index (BMI): 33.3 Urine Drug Screen - Test Device Lot number: [id number] Expiration date: 08/15/20 - Control Is test valid?: Yes - Results Drug screen NEGATIVE: No Urine drug screen results: THC-Marijuana, MOP-Opiates, MTD-Methadone, BZO- Benzodiazepines Inpatient Rehab Admission - Rehab Decision to Admit Inpatient rehab admission?: No
[2018-12-04] MEDS ORDERED: MELATONIN 5 MG TABLETS PO PRN (02:46)
[2018-12-04] MEDS ORDERED: IBUPROFEN 400 MG TABLET (FP) PO PRN (02:46)
[2018-12-04] MEDS ORDERED: MAG HYDROX/AL HYDROX/SIMETH 30 ML UNIT-DOSE CUP PO PRN (02:46)
[2018-12-04] MEDS ORDERED: METHOCARBAMOL 500 MG TABLET PO PRN (02:46)
[2018-12-04] MEDS ORDERED: NICOTINE POLACRILEX 2 MG GUM BUC PRN (02:46)
[2018-12-04] MEDS ORDERED: MENTHOL/PHENOL 1 EACH UD MM PRN (02:46)
[2018-12-04] MEDS ORDERED: hydrOXYzine PAMOATE 25 MG CAPSULE (FP) PO PRN (02:46)
[2018-12-04] MEDS ORDERED: ACETAMINOPHEN 325 MG TABLET (FP) PO PRN ×2 (02:46)
[2018-12-04] MEDS ORDERED: MAGNESIUM HYDROX 2400MG/30ML ORAL SUSPENSION 30 ML CUP PO PRN (02:46)
[2018-12-04] MEDS ORDERED: BISMUTH SUBSALICYLATE 524 MG/30 ML UD PO PRN (02:46)
[2018-12-04] MEDS ORDERED: MAGNESIUM CITRATE 300 ML BOTTLE PO PRN (02:46)
[2018-12-04 02:51] VITALS: BMI 33.3
[2018-12-04] MEDS: diazePAM 5 MG TABLET PO PRN ×2 (03:29→09:50)
[2018-12-04] MEDS: diazePAM 5 MG TABLET PO SCH ×2 (06:26→13:30)
[2018-12-04] MEDS ORDERED: METHADONE HCL 10 MG TABLET PO SCH (09:00)
[2018-12-04] MEDS ORDERED: METHADONE 80 MG, METHADONE 10 MG PO SCH ×2 (09:15→09:20)
[2018-12-04] MEDS ORDERED: METHADONE HCL 10 MG TABLET ONE (09:31)
[2018-12-04] MEDS ORDERED: METHADONE HCL 40 MG DISPERSABLE TABLET ONE (09:32)
[2018-12-04] MEDS ORDERED: PRENATAL VITAMINS W/ FOLIC ACID TABLET (FP) PO SCH (10:00)
[2018-12-04] MEDS ORDERED: NICOTINE 14 MG/24 HOURS TOPICAL PATCH TD SCH (10:00)
[2018-12-04 13:15] VITALS: BP 134/85; PULSE 72; TEMP 97.9
[2018-12-04] MEDS ORDERED: POVIDONE-IODINE 10% SOLN 118 ML BOTTLE TP SCH (13:45)
[2018-12-04] MEDS ORDERED: TOLNAFTATE 1% POWDER 45 GM POW TP SCH (13:45)
--- NOTE | 2018-12-04 15:42 | EKG ---
Test Reason : Blood Pressure : / mmHG Vent. Rate : 072 BPM Atrial Rate : 072 BPM P-R Int : 158 ms QRS Dur : 088 ms QT Int : 408 ms P-R-T Axes : 061 043 027 degrees QTc Int : 446 ms NORMAL SINUS RHYTHM NORMAL ECG WHEN COMPARED WITH ECG OF 25-APR-2018 15:44, NO SIGNIFICANT CHANGE WAS FOUND Confirmed by TATE GRANDE MD ([id number]) on 12/04/2018 3:42:31 PM Referred By: MICHAEL ALONZO Confirmed By:TATE GRANDE MD
--- NOTE | 2018-12-04 15:59 | PN ---
S CIWA - CIWA Score Nausea/Vomitin-No Nausea/No Vomiting Muscle Tremors: None Anxiety: 3 Agitation: 1-Slight > Activity Paroxysmal Sweats: 3 Orientation: 0-Oriented Tacttile Disturbances: 2-Mild Itch/Numbness/Burn Auditory Disturbances: 2-Mild Harshness/Frighten Visual Disturbances: 0-None Headache: 0-None Present CIWA-Ar Total Score: 11 BHS Progress Note (SOAP) Subjective: Fatigue, Anxious, Sweating, Poor Appetite. Objective: PATIENT A & O X 3, OBSERVED AMBULATING ON UNIT UNASSISTED. IN NO ACUTE DISTRESS. 12/04/18 15:58 Vital Signs Temperature 97.9 F 12/04/18 13:14 Pulse Rate 72 12/04/18 13:14 Respiratory Rate 18 12/04/18 13:14 Blood Pressure 134/85 12/04/18 13:14 O2 Sat by Pulse Oximetry (%) ADMISSION LABS RESULTS PENDING. 12/04/18 15:59 Assessment: 12/04/18 15:59 WITHDRAWAL SYMPTOMS. Plan: CONTINUE DETOX. ENSURE PO FOR CALORIC SUPPLEMENTATION.
--- NOTE | 2018-12-04 16:02 | DS ---
[facility] Detox Discharge Summary Admission Date: 12/04/18 Discharge Date: 12/04/18 - History Present History: Alcohol Dependence, Opioid Dependence, MMTP Additional Comments: DESPITE EFFORTS BY TOP LIFT COMPRESSER AND BY NURSING STAFF TO ADDRESS PATIENT'S MEDICAL NEEDS / CONCERNS, PATIENT DOES NOT WISH TO REMAIN TO COMPLETE DETOX REGIMEN. RISKS OF LEAVING DETOX UNIT AGAINST MEDICAL ADVICE AND PRIOR TO COMPLETION OF DETOX REGIMEN EXPLAINED TO PATIENT. PATIENT ADVISED TO GO IMMEDIATELY TO NEAREST ER SHOULD ANY INTOLERABLE WITHDRAWAL / DETOX SYMPTOMS DEVELOP AT ANY TIME. PATIENT VERBALIZED UNDERSTANDING OF ALL INFORMATION / RECOMMENDATIONS PRESENTED TO HIM PRIOR TO DEPARTURE FROM DETOX UNIT. PATIENT LEFT DETOX UNIT IN STABLE MEDICAL CONDITION. Pertinent Past History: HTN, Hypercholesterolemia, Depression, Anxiety, Nicotine Dependence, M.M.T.P. - Physical Exam Results Vital Signs: Vital Signs Temperature 97.9 F 12/04/18 13:14 Pulse Rate 72 12/04/18 13:14 Respiratory Rate 18 12/04/18 13:14 Blood Pressure 134/85 12/04/18 13:14 O2 Sat by Pulse Oximetry (%) Pertinent Admission Physical Exam Findings: WITHDRAWAL SYMPTOMS. ADMISSION LAB RESULTS PENDING AT TIME IN WHICH PATIENT LEFT DETOX UNIT AGAINST MEDICAL ADVICE. - Treatment Hospital Course: Detoxed Safely - Medication Discharge Medications: Ambulatory Orders Bupropion HCl [Bupropion HCl Sr] 150 mg PO BID 04/30/18 Mirtazapine 15 mg PO DAILY 04/30/18 [place]-3/Dha/Epa/Fish Oil [Fish Oil 1,000 mg Softgel] 1,000 mg PO BID 04/30/18 Atorvastatin Calcium 40 mg PO HS #7 tablet 05/10/18 Nicotine Patch [Nicoderm Patch -] 14 mg TD DAILY #7 patch 05/10/18 Nicotine Polacrilex [Nicorelief -] 2 mg BUC Q2H PRN #30 gum 05/10/18 Bupropion HCl [Wellbutrin Xl -] 150 mg PO DAILY #30 tab.sr.24h 05/13/18 Mirtazapine [Remeron -] 15 mg PO HS #30 tablet 05/13/18 - Diagnosis (1) Alcohol dependence with uncomplicated withdrawal Status: Acute (2) Anxiety Status: Chronic (3) Cocaine dependence Status: Chronic Qualifiers: Substance use status: uncomplicated Qualified Code(s): F14.20 - Cocaine dependence, uncomplicated (4) Depression Status: Chronic Qualifiers: Depression Type: unspecified Qualified Code(s): F32.9 - Major depressive disorder, single episode, unspecified (5) HLD (hyperlipidemia) Status: Chronic Qualifiers: Hyperlipidemia type: unspecified Qualified Code(s): E78.5 - Hyperlipidemia , unspecified (6) Nicotine dependence Status: Chronic Qualifiers: Nicotine product type: cigarettes Substance use status: uncomplicated Qualified Code(s): F17.210 - Nicotine dependence, cigarettes, uncomplicated (7) Opioid dependence on agonist therapy Status: Chronic (8) Sedative hypnotic or anxiolytic dependence Status: Chronic - AMA Did Patient Leave Against Medical Advice: No
[2018-12-04] MEDS ORDERED: THIAMINE HCL 100 MG TABLET (FP) PO SCH (22:00)
[2018-12-05] MEDS ORDERED: METHADONE 80 MG, METHADONE 10 MG PO SCH (06:00)
[2018-12-05] MEDS ORDERED: diazePAM 5 MG TABLET PO SCH (06:00)
[2018-12-06] MEDS ORDERED: diazePAM 5 MG TABLET PO ONE (06:00)
== END 2018-12-04 14:58 | disposition left against medical advice (07) | DRG 770 ==
LOC: YASAS 16:50 → Y3N 12-04 02:59
PROVIDERS: ADMIT Surgery; ATTEND Surgery
PROC: HZ2ZZZZ Detoxification Services for Substance Abuse Treatment (ICD-10-PCS; principal; 2018-12-04)
DX: F10.230 Alcohol dependence with withdrawal, uncomplicated (principal); F11.20 Opioid dependence, uncomplicated; F13.20 Sedative, hypnotic or anxiolytic dependence, uncomplicated; F14.20 Cocaine dependence, uncomplicated; F17.210 Nicotine dependence, cigarettes, uncomplicated; F41.9 Anxiety disorder, unspecified; F32.9 Major depressive disorder, single episode, unspecified; E78.5 Hyperlipidemia, unspecified; Z59.0 Homelessness
CPT/HCPCS: 93005; 93010

== ENCOUNTER 2019-05-21 21:05 | Inpatient (IN) | payer OTHER ==
[2019-05-21 22:14] VITALS: BMI 31.8
--- NOTE | 2019-05-21 22:35 | HP ---
CIWA Score Nausea/Vomitin-No Nausea/No Vomiting Muscle Tremors: None Anxiety: 4-Mod. Anxious/Guarded Agitation: 4-Moderately Restless Paroxysmal Sweats: 4-Forehead w/Sweat Beads Orientation: 1-Uncertain about Date Tacttile Disturbances: 0-None Auditory Disturbances: 0-None Visual Disturbances: 0-None Headache: 0-None Present CIWA-Ar Total Score: 13 - Admission Criteria OASAS Guidelines: Admission for Medically Managed Detox: Requires at least one of the followin. CIWA greater than 12 2. Seizures within the past 24 hours 3. Delirium tremens within the past 24 hours 4. Hallucinations within the past 24 hours 5. Acute intervention needed for co occurring medical disorder 6. Acute intervention needed for co occurring psychiatric disorder 7. Severe withdrawal that cannot be handled at a lower level of care (continued vomiting, continued diarrhea, abnormal vital signs) requiring intravenous medication and/or fluids 8. Patient presents the following: CIWA greater than 12 Admission Criteria Met: Admission criteria met Admitting History and Physical - Smoking History Smoking history: Current every day smoker Have you smoked in the past 12 months: Yes Aproximately how many cigarettes per day: 6 - Alcohol/Substance Use Hx Alcohol Use: No Admission ROS [facility] - HPI Chief Complaint: seeking detox for xanax dependence Allergies/Adverse Reactions: Allergies Allergy/AdvReac Type Severity Reaction Status Date / Time No Known Allergies Allergy Verified 05/21/19 22:06 History of Present Illness: HERE FOR [facility] DETOX. CLIENT IS SELF REFERRED. KNOWN TO PROGRAM LAST HERE HE SIGNED OUT AMA. CLIENT REPORTS DAILY KLONOPIN/XANAX USE. USING APPROXIMATELY 6 MG XANAX AND 4 MG KLONOPINS. LAST USE TODAY. 2 MG. DENIES HX/O SEIZURE, BLACK OUTS, OVERDOES. HE IS CURRENTLY ON METHADONE 170 MG DAILY. LDM TODAY AT [facility]. DENIES ANY CLEAN TIME IN THE PAST YEAR. HOMELESS, UNEMPLOYED,DENIES LEGALS. Exam Limitations: No Limitations - Ebola screening Have you traveled outside of the country in the last 21 days: No (N) Have you had contact with anyone from an Ebola affected area: No Have you been sick,other than usual withdrawal symptoms: No Do you have a fever: No - Review of Systems Constitutional: Changes in sleep EENT: reports: No Symptoms Reported Respiratory: reports: No Symptoms reported Cardiac: reports: No Symptoms Reported GI: reports: Constipated : reports: Frequency (AT NIGHT) Musculoskeletal: reports: No Symptoms Reported Integumentary: reports: Flushing, Sweating Neuro: reports: No Symptoms reported Endocrine: reports: No Symptoms Reported Hematology: reports: No Symptoms Reported Psychiatric: reports: Orientated x3, Agitated (IRRITBALE), Anxious, Depressed ( DENIES SI) Other Systems: Reviewed and Negative Patient History - Patient Medical History Hx Anemia: No Hx Asthma: No Hx Chronic Obstructive Pulmonary Disease (COPD): No Hx Cancer: No Hx Cardiac Disorders: No Hx Congestive Heart Failure: No Hx Hypertension: Yes (Not on med) Hx Hypercholesterolemia: No Hx Pacemaker: No HX Cerebrovascular Accident: No Hx Seizures: No Hx Dementia: No Hx Diabetes: No Hx Gastrointestinal Disorders: No Hx Liver Disease: No Hx Genitourinary Disorders: No Hx Sexually Transmitted Disorders: No Hx Renal Disease (ESRD): No Hx Thyroid Disease: No Hx Human Immunodeficiency Virus (HIV): No Hx Hepatitis C: No Hx Depression: Yes (Not on med) Hx Suicide Attempt: No Hx Bipolar Disorder: No Hx Schizophrenia: No Other Medical History: MMTP - Patient Surgical History Past Surgical History: No Hx Neurologic Surgery: No Hx Cataract Extraction: No Hx Cardiac Surgery: No Hx Lung Surgery: No Hx Breast Surgery: No Hx Breast Biopsy: No Hx Abdominal Surgery: No Hx Appendectomy: No Hx Cholecystectomy: No Hx Genitourinary Surgery: No Hx Section: No Hx Orthopedic Surgery: No Anesthesia Reaction: No - PPD History Previous Implant?: Yes Documented Results: Negative w/proof Implanted On Prior [facility] Admission?: Yes Date: 10/04/17 Results: 0 mm PPD to be Administered?: Yes - Smoking Cessation Smoking history: Current every day smoker Have you smoked in the past 12 months: Yes Aproximately how many cigarettes per day: 20 Cigars Per Day: 0 Hx Chewing Tobacco Use: Yes Initiated information on smoking cessation: Yes 'Breaking Loose' booklet given: 05/21/19 - Substance & Tx. History Hx Alcohol Use: No Hx Substance Use: Yes Substance Use Type: Tranquilizers (XANAX/ KLONOPINS) Hx Substance Use Treatment: Yes ([facility]) - Substances abused Alprazolam (Xanax) Substance route: Oral Frequency: Daily Amount used: 6mg Age of first use: 33 Date of last use: 05/21/19 Benzodiazepine (Klonopin) Substance route: Oral Frequency: Daily Amount used: 4mg Age of first use: 33 Date of last use: 05/21/19 Admission Physical Exam [facility] - Vital Signs Vital Signs: Vital Signs - 24 hr 05/21/19 22:05 Temperature 97.6 F Pulse Rate 84 Respiratory 18 Rate Blood Pressure 144/92 - Physical General Appearance: Yes: Moderate Distress, Tremorous, Irritable, Sweating, Anxious HEENTM: Yes: EOMI, Normocephalic, Normal Voice, MELISSA, Pharynx Normal, Other ( POOR DENTITION MISSING TEETH) Respiratory: Yes: Chest Non-Tender, Lungs Clear, Normal Breath Sounds, No Respiratory Distress, No Accessory Muscle Use Neck: Yes: No masses,lesions,Nodules, Supple, Trachea in good position Breast: Yes: Breast Exam Deferred Cardiology: Yes: Regular Rhythm, Regular Rate, S1, S2 Abdominal: Yes: Normal Bowel Sounds, Non Tender, Soft, Protuberent Genitourinary: Yes: Nocturia Back: Yes: Normal Inspection Musculoskeletal: Yes: Gait Steady Extremities: Yes: Normal Capillary Refill, Normal Inspection, Non-Tender, Tremors Neurological: Yes: Fully Oriented, Alert, Motor Strength 5/5, Depressed Affect Integumentary: Yes: Clammy, Other (FLUSHED) Lymphatic: Yes: Within Normal Limits - Diagnostic (1) Constipation Current Visit: Yes Status: Acute Qualifiers: Constipation type: drug induced constipation Qualified Code(s): K59.03 - Drug induced constipation (2) Psychiatric disorder Current Visit: Yes Status: Chronic Comment: DEPRESSION (3) Sedative, hypnotic or anxiolytic dependence, uncomplicated Current Visit: Yes Status: Acute (4) Substance induced mood disorder Current Visit: Yes Status: Suspected (5) Substance-induced anxiety disorder Current Visit: Yes Status: Suspected (6) Substance-induced sleep disorder Current Visit: Yes Status: Suspected (7) Nicotine dependence Current Visit: Yes Status: Chronic Qualifiers: Nicotine product type: cigarettes Substance use status: uncomplicated Qualified Code(s): F17.210 - Nicotine dependence, cigarettes, uncomplicated (8) Opioid dependence on agonist therapy Current Visit: Yes Status: Chronic Comment: [facility] REPORTED 170 MG (9) Homeless Current Visit: Yes Status: Suspected Comment: REPORTED (10) HTN (hypertension) Current Visit: Yes Status: Chronic Qualifiers: Hypertension type: essential hypertension Qualified Code(s): I10 - Essential (primary) hypertension Cleared for Admission [facility] - Detox or Rehab [facility] Level of Care: Medically Managed Detox Regimen/Protocol: Valium Claeared for Rehab Admission: No Breathalyzer - Breathalyzer Breathalyzer: 0 Urine Drug Screen - Test Device Lot number: [id number] Expiration date: 08/15/20 - Control Is test valid?: Yes - Results Drug screen NEGATIVE: No Urine drug screen results: THC-Marijuana, MOP-Opiates, MTD-Methadone, BZO- Benzodiazepines Inpatient Rehab Admission - Rehab Decision to Admit Inpatient rehab admission?: No
[2019-05-21] MEDS ORDERED: METHOCARBAMOL 500 MG TABLET PO PRN (22:41)
[2019-05-21] MEDS ORDERED: guaiFENesin 200 MG/10 ML 10 ML UNIT-DOSE CUPS PO PRN (22:41)
[2019-05-21] MEDS ORDERED: MENTHOL/PHENOL 1 EACH UD MM PRN (22:41)
[2019-05-21] MEDS ORDERED: MAGNESIUM HYDROX 2400MG/30ML ORAL SUSPENSION 30 ML CUP PO PRN (22:41)
[2019-05-21] MEDS ORDERED: MAG HYDROX/AL HYDROX/SIMETH 30 ML UNIT-DOSE CUP PO PRN (22:41)
[2019-05-21] MEDS ORDERED: P-EPHED 60MG/TRIPROLIDI 2.5MG TABLET PO PRN (22:41)
[2019-05-21] MEDS ORDERED: MAGNESIUM CITRATE 300 ML BOTTLE PO PRN (22:41)
[2019-05-21] MEDS ORDERED: ACETAMINOPHEN 325 MG TABLET (FP) PO PRN ×2 (22:41)
[2019-05-21] MEDS ORDERED: MELATONIN 5 MG TABLETS PO PRN (22:41)
[2019-05-21] MEDS ORDERED: hydrOXYzine PAMOATE 25 MG CAPSULE (FP) PO PRN (22:41)
[2019-05-21] MEDS ORDERED: ONDANSETRON *ODT* 4 MG TABLET SL PRN (22:41)
[2019-05-21] MEDS ORDERED: DICYCLOMINE HCL 10 MG CAPSULE PO PRN (22:41)
[2019-05-21] MEDS ORDERED: BISMUTH SUBSALICYLATE 524 MG/30 ML UD PO PRN (22:41)
[2019-05-21] MEDS ORDERED: IBUPROFEN 400 MG TABLET (FP) PO PRN (22:41)
[2019-05-22] MEDS: diazePAM 5 MG TABLET PO SCH ×4 (00:01→22:09)
[2019-05-22] MEDS: DOCUSATE SODIUM 100 MG CAPSULE (FP) PO SCH ×2 (00:02→22:09)
[2019-05-22] MEDS: NICOTINE POLACRILEX 2 MG GUM BUC PRN ×6 (05:49→22:12)
[2019-05-22] MEDS ORDERED: METHADONE HCL 10 MG TABLET PO ONE (08:58)
[2019-05-22] MEDS ORDERED: METHADONE 160 MG, METHADONE 10 MG PO ONE (09:15)
[2019-05-22 09:51] LABS: HEMOGLOBIN 13.6 GM/dL (11.7-16.9); MEAN CELL VOLUME 87.8 fl (80-96); PLATELET COUNT 118 K/MM3 (134-434); RBC 4.67 M/mm3 (4.00-5.60); RDW 14.2 % (11.9-15.9); WHITE BLOOD COUNT 5.8 K/mm3 (4.0-10.0)
[2019-05-22] MEDS ORDERED: PRENATAL VITAMINS W/ FOLIC ACID TABLET (FP) PO SCH (10:00)
[2019-05-22] MEDS ORDERED: NICOTINE 21 MG/24 HOURS TOPICAL PATCH TD SCH (10:00)
[2019-05-22 10:01] LABS: ALBUMIN 3.2 g/dl (3.4-5.0); BILIRUBIN,TOTAL 0.1 mg/dL (0.2-1); CALCIUM 8.4 mg/dL (8.5-10.1); POTASSIUM 4.1 mmol/L (3.5-5.1)
[2019-05-22] MEDS ORDERED: METHADONE HCL 10 MG TABLET ONE (10:13)
[2019-05-22] MEDS ORDERED: METHADONE HCL 40 MG DISPERSABLE TABLET ONE (10:13)
[2019-05-22] MEDS: diazePAM 5 MG TABLET PO PRN ×3 (10:18→19:48)
--- NOTE | 2019-05-22 10:44 | EKG ---
Test Reason : Blood Pressure : / mmHG Vent. Rate : 071 BPM Atrial Rate : 071 BPM P-R Int : 152 ms QRS Dur : 088 ms QT Int : 422 ms P-R-T Axes : 060 042 031 degrees QTc Int : 458 ms NORMAL SINUS RHYTHM NORMAL ECG WHEN COMPARED WITH ECG OF 04-DEC-2018 10:26, NO SIGNIFICANT CHANGE WAS FOUND Confirmed by DAISY FRANK MD ([id number]) on 05/22/2019 10:44:47 AM Referred By: Richar Nava Confirmed By:DAISY FRANK MD
--- NOTE | 2019-05-22 11:38 | PN ---
S CIWA - CIWA Score Nausea/Vomitin-No Nausea/No Vomiting Muscle Tremors: 3 Anxiety: 2 Agitation: 3 Paroxysmal Sweats: 3 Orientation: 0-Oriented Tacttile Disturbances: 0-None Auditory Disturbances: 0-None Visual Disturbances: 0-None Headache: 0-None Present CIWA-Ar Total Score: 11 S Progress Note (SOAP) Subjective: sweats irritable agitation restless Objective: 05/22/19 11:38 Vital Signs Temperature 97.7 F 05/22/19 09:36 Pulse Rate 61 05/22/19 09:36 Respiratory Rate 18 05/22/19 09:36 Blood Pressure 130/65 05/22/19 09:36 O2 Sat by Pulse Oximetry (%) Laboratory Tests 05/22/19 05/22/19 05/22/19 08:00 08:00 08:00 WBC 5.8 RBC 4.67 Hgb 13.6 Hct 41.0 MCV 87.8 MCH 29.0 MCHC 33.0 RDW 14.2 Plt Count 118 L D MPV 10.0 Sodium 144 Potassium 4.1 Chloride 110 H Carbon Dioxide 30 Anion Gap 4 L BUN 19.0 H Creatinine 1.0 Est GFR (CKD-EPI)AfAm 102.69 Est GFR (CKD-EPI)NonAf 88.61 Random Glucose 94 Calcium 8.4 L Total Bilirubin 0.1 L AST 12 L ALT 18 Alkaline Phosphatase 79 Total Protein 6.0 L Albumin 3.2 L RPR Titer Nonreactive labs noted aaox3 ambulating no acute distress Assessment: 05/22/19 11:38 withdrawals Plan: continue detox increase fluids
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
[2019-05-22 12:18] LABS: PH,URINE 6.5 (5.0-8.0); URINE APPEARANCE CLEAR; URINE BILIRUBIN NEGATIVE (NEGATIVE); URINE COLOR YELLOW; URINE GLUCOSE (UA) NEGATIVE (NEGATIVE); URINE KETONE TRACE (NEGATIVE); URINE LEUK ESTERASE NEGATIVE (NEGATIVE); URINE NITRITE NEGATIVE (NEGATIVE); URINE PROTEIN TRACE (NEGATIVE)
[2019-05-22] MEDS ORDERED: MIRTAZAPINE 15 MG TABLET (FP) PO SCH (22:00)
[2019-05-22] MEDS ORDERED: THIAMINE HCL 100 MG TABLET (FP) PO SCH (22:00)
[2019-05-23] MEDS ORDERED: METHADONE HCL 40 MG DISPERSABLE TABLET ONE (04:41)
[2019-05-23] MEDS ORDERED: METHADONE HCL 10 MG TABLET ONE (04:41)
[2019-05-23] MEDS: NICOTINE POLACRILEX 2 MG GUM BUC PRN (05:18)
[2019-05-23 05:54] VITALS: BP 118/78; PULSE 64; TEMP 97.5
[2019-05-23] MEDS ORDERED: METHADONE HCL 40 MG DISPERSABLE TABLET PO SCH (06:00)
[2019-05-23] MEDS ORDERED: diazePAM 5 MG TABLET PO SCH (06:00)
[2019-05-23] MEDS ORDERED: METHADONE 160 MG, METHADONE 10 MG PO SCH (06:00)
[2019-05-23] MEDS: diazePAM 5 MG TABLET PO PRN (07:35)
--- NOTE | 2019-05-23 08:42 | PN ---
[facility] Progress Note Note: pt states he needs to go now. pt states he wants to smoke cigarettes, wants to go back to his detention and needs to leave now. Pt was advised about staying to prevent relapse, seizures, DT, OD and or loss, pt chose to sign out AMA.
--- NOTE | 2019-05-23 08:44 | DS ---
[facility] Detox Discharge Summary Admission Date: 05/21/19 - History Present History: Sedative Dependence, MMTP - Physical Exam Results Vital Signs: Vital Signs Temperature 97.5 F L 05/23/19 05:53 Pulse Rate 64 05/23/19 05:53 Respiratory Rate 18 05/23/19 05:53 Blood Pressure 118/78 05/23/19 05:53 O2 Sat by Pulse Oximetry (%) Pertinent Admission Physical Exam Findings: pt arrived in withdrawals Vital Signs Temperature 97.5 F L 05/23/19 05:53 Pulse Rate 64 05/23/19 05:53 Respiratory Rate 18 05/23/19 05:53 Blood Pressure 118/78 05/23/19 05:53 O2 Sat by Pulse Oximetry (%) Laboratory Tests 05/22/19 05/22/19 05/22/19 08:00 08:00 08:00 WBC 5.8 RBC 4.67 Hgb 13.6 Hct 41.0 MCV 87.8 MCH 29.0 MCHC 33.0 RDW 14.2 Plt Count 118 L D MPV 10.0 Sodium 144 Potassium 4.1 Chloride 110 H Carbon Dioxide 30 Anion Gap 4 L BUN 19.0 H Creatinine 1.0 Est GFR (CKD-EPI)AfAm 102.69 Est GFR (CKD-EPI)NonAf 88.61 Random Glucose 94 Calcium 8.4 L Total Bilirubin 0.1 L AST 12 L ALT 18 Alkaline Phosphatase 79 Total Protein 6.0 L Albumin 3.2 L Urine Color Urine Appearance Urine pH Ur Specific Gary Urine Protein Urine Glucose (UA) Urine Ketones Urine Blood Urine Nitrite Urine Bilirubin Urine Urobilinogen Ur Leukocyte Esterase RPR Titer Nonreactive 05/22/19 10:25 WBC RBC Hgb Hct MCV MCH MCHC RDW Plt Count MPV Sodium Potassium Chloride Carbon Dioxide Anion Gap BUN Creatinine Est GFR (CKD-EPI)AfAm Est GFR (CKD-EPI)NonAf Random Glucose Calcium Total Bilirubin AST ALT Alkaline Phosphatase Total Protein Albumin Urine Color Yellow Urine Appearance Clear Urine pH 6.5 D Ur Specific Gary 1.037 H Urine Protein Trace Urine Glucose (UA) Negative Urine Ketones Trace H Urine Blood Negative Urine Nitrite Negative Urine Bilirubin Negative Urine Urobilinogen 1.0 Ur Leukocyte Esterase Negative RPR Titer pt chose to sign out AMA aaox3 ambulating - Treatment Hospital Course: Rehab Referral Accepted - Diagnosis (1) Constipation Current Visit: Yes Status: Acute Qualifiers: Constipation type: drug induced constipation Qualified Code(s): K59.03 - Drug induced constipation (2) Sedative, hypnotic or anxiolytic dependence, uncomplicated Current Visit: Yes Status: Acute (3) Substance induced mood disorder Current Visit: Yes Status: Acute (4) Substance-induced sleep disorder Current Visit: Yes Status: Acute (5) HTN (hypertension) Current Visit: Yes Status: Chronic Qualifiers: Hypertension type: essential hypertension Qualified Code(s): I10 - Essential (primary) hypertension (6) Nicotine dependence Current Visit: Yes Status: Chronic Qualifiers: Nicotine product type: cigarettes Substance use status: uncomplicated Qualified Code(s): F17.210 - Nicotine dependence, cigarettes, uncomplicated (7) Opioid dependence on agonist therapy Current Visit: Yes Status: Chronic (8) Psychiatric disorder Current Visit: Yes Status: Chronic (9) Homeless Current Visit: Yes Status: Suspected (10) Substance-induced anxiety disorder Current Visit: Yes Status: Suspected (11) Alcohol dependence Current Visit: No Status: Acute Qualifiers: Substance use status: in remission Qualified Code(s): F10.21 - Alcohol dependence, in remission (12) Alcohol dependence with uncomplicated withdrawal Current Visit: No Status: Acute (13) Azotemia Current Visit: No Status: Acute (14) Cannabis abuse Current Visit: No Status: Acute (15) Dehydration Current Visit: No Status: Acute (16) Elevated alkaline phosphatase level Current Visit: No Status: Acute (17) Elevated liver enzymes Current Visit: No Status: Acute (18) Insomnia Current Visit: No Status: Acute Qualifiers: Insomnia type: unspecified Qualified Code(s): G47.00 - Insomnia, unspecified (19) PCP abuse Current Visit: No Status: Acute (20) Sciatica Current Visit: No Status: Acute Qualifiers: Laterality: unspecified laterality Qualified Code(s): M54.30 - Sciatica, unspecified side (21) Sedative, hypnotic or anxiolytic dependence with withdrawal, uncomplicated Current Visit: No Status: Acute (22) Anxiety Current Visit: No Status: Chronic (23) Cocaine dependence Current Visit: No Status: Chronic Qualifiers: Substance use status: uncomplicated Qualified Code(s): F14.20 - Cocaine dependence, uncomplicated (24) Depression Current Visit: No Status: Chronic Qualifiers: Depression Type: unspecified Qualified Code(s): F32.9 - Major depressive disorder, single episode, unspecified (25) Encounter for monitoring Suboxone maintenance therapy Current Visit: No Status: Chronic (26) HLD (hyperlipidemia) Current Visit: No Status: Chronic Qualifiers: Hyperlipidemia type: unspecified Qualified Code(s): E78.5 - Hyperlipidemia , unspecified (27) MDD (major depressive disorder), recurrent episode, moderate Current Visit: No Status: Chronic (28) Sedative hypnotic or anxiolytic dependence Current Visit: No Status: Chronic - AMA Did Patient Leave Against Medical Advice: Yes
[2019-05-24] MEDS ORDERED: diazePAM 5 MG TABLET PO ONE (06:00)
== END 2019-05-23 08:58 | disposition left against medical advice (07) | DRG 770 ==
LOC: YASAS 21:05 → Y6N 23:25
PROVIDERS: ADMIT Allergy & Immunology; ATTEND Allergy & Immunology
PROC: HZ2ZZZZ Detoxification Services for Substance Abuse Treatment (ICD-10-PCS; principal; 2019-05-21)
DX: F10.230 Alcohol dependence with withdrawal, uncomplicated (principal); F11.20 Opioid dependence, uncomplicated; F13.230 Sedative, hypnotic or anxiolytic dependence with withdrawal, uncomplicated; F14.20 Cocaine dependence, uncomplicated; F16.10 Hallucinogen abuse, uncomplicated; F12.10 Cannabis abuse, uncomplicated; F17.210 Nicotine dependence, cigarettes, uncomplicated; F19.280 Other psychoactive substance dependence with psychoactive substance-induced anxiety disorder; F19.282 Other psychoactive substance dependence with psychoactive substance-induced sleep disorder; F19.24 Other psychoactive substance dependence with psychoactive substance-induced mood disorder; F33.1 Major depressive disorder, recurrent, moderate; F41.9 Anxiety disorder, unspecified; F32.9 Major depressive disorder, single episode, unspecified; F99 Mental disorder, not otherwise specified; K59.00 Constipation, unspecified; E86.0 Dehydration; M54.30 Sciatica, unspecified side; G47.00 Insomnia, unspecified; R74.0 Nonspecific elevation of levels of transaminase and lactic acid dehydrogenase [LDH]; R74.8 Abnormal levels of other serum enzymes; R79.89 Other specified abnormal findings of blood chemistry; E78.5 Hyperlipidemia, unspecified; Z51.81 Encounter for therapeutic drug level monitoring; Z59.0 Homelessness
CPT/HCPCS: 36415; 80053; 81003; 85027; 86593; 93005; 93010